=== PATIENT | female | born 1960 | race African-American/Black ===

== ENCOUNTER 2018-01-29 13:34 | Emergency (ER) | payer MEDICAID ==
[~2018-01-29] VITALS: Ht 180.3 cm; Wt 90.0 kg
[~2018-01-29 13:34] MED LIST: [UNRECOGNIZED DRUG - REMARK]
[2018-01-29 14:50] LABS: BASOPHILS % 0.1 % (0.0-2.0); HEMATOCRIT. 49.3 % (36.0-48.0); HEMOGLOBIN. 16.7 g/dL (12.0-16.0); LYMPHOCYTES % 7.8 % (20.0-50.0); MEAN CORPUSCULAR HEMOGLOBIN 34.1 pg (28.0-32.0); MEAN CORPUSCULAR VOLUME 100.9 fL (81.0-99.0); MEAN PLATELET VOLUME 7.7 fl (7.4-10.4); MONOCYTES % 2.8 % (2.0-8.0); NEUTROPHILS % 89.3 % (40.0-76.0); PLATELET 272 x1000/uL (130-400); RED BLOOD CELL COUNT 4.89 mill/uL (4.2-5.4); RED CELL DISTRIBUTION WIDTH 14.9 % (11.6-14.6)
[2018-01-29 14:56] LABS: CHLORIDE 99 mEq/L (98-107)
[2018-01-29] MEDS ORDERED: ONDANSETRON HCL 4MG/2ML VIAL IV ONE (17:30)
[2018-01-29] MEDS ORDERED: MORPHINE SULFATE 4 MG/ML CPJ (NOT FOR IM USE) IV STA (18:45)
[2018-01-29] MEDS ORDERED: SODIUM CHLORIDE 0.9% 1,000 ML IV ONE (18:45)
[2018-01-29] MEDS ORDERED: ONDANSETRON HCL 4MG/2ML VIAL IV STA (18:45)
[2018-01-29 19:19] LABS: CLARITY URINE TURBID (CLEAR); COLOR URINE DARK YELLOW (YELLOW); KETONES URINE 1+ (NEGATIVE); LEUKOCYTE ESTERASE URINE 1+ (NEGATIVE); NITRITE URINE NEGATIVE (NEGATIVE); OCCULT BLOOD URINE NEGATIVE (NEGATIVE); PROTEIN URINE 2+ (NEGATIVE); SPECIFIC GRAVITY URINE 1.031 (1.005-1.030)
[2018-01-29] MEDS ORDERED: CEFTRIAXONE 1 G PREMIX 50 ML IV ONE (21:45)
[2018-01-29 22:45] VITALS: BP 131/82
== END 2018-01-30 00:04 | disposition home or self-care (01) ==
LOC: ER 13:34
DX: N39.0 Urinary tract infection, site not specified (principal); R11.2 Nausea with vomiting, unspecified
CPT/HCPCS: 36415; 71045; 74176; 80053; 81003; 83690; 84484; 85025; 85610; 93005; 96361; 96365; 96375; 96376; 99285; J0696; J2270; J2405; J7030

== ENCOUNTER 2018-03-14 13:06 | Emergency (ER) | payer MEDICAID ==
[~2018-03-14] VITALS: Ht 167.6 cm; Wt 80.0 kg
[2018-03-14] MEDS ORDERED: MORPHINE SULFATE 4 MG/ML CPJ (NOT FOR IM USE) IV STA (13:21)
[2018-03-14] MEDS ORDERED: ONDANSETRON HCL 4MG/2ML INJ IV STA (13:21)
[2018-03-14] MEDS ORDERED: SODIUM CHLORIDE 0.9% 1,000 ML IV ONE (13:21)
[2018-03-14 14:25] LABS: BASOPHILS % 0.9 % (0.0-2.0); HEMATOCRIT. 42.6 % (36.0-48.0); HEMOGLOBIN. 14.6 g/dL (12.0-16.0); LYMPHOCYTES % 17.2 % (20.0-50.0); MEAN CORPUSCULAR HEMOGLOBIN 34.7 pg (28.0-32.0); MEAN CORPUSCULAR VOLUME 101.2 fL (81.0-99.0); MONOCYTES % 5.4 % (2.0-8.0); NEUTROPHILS % 75.5 % (40.0-76.0); PLATELET 788 x1000/uL (130-400); RED BLOOD CELL COUNT 4.21 mill/uL (4.2-5.4); RED CELL DISTRIBUTION WIDTH 15.1 % (11.6-14.6)
[2018-03-14 14:28] LABS: CHLORIDE 101 mEq/L (98-107); INR 1.1; PROTHROMBIN TIME 10.8 sec (9.1-11.1)
[2018-03-14 15:07] VITALS: BP 140/84
[2018-03-14 15:40] LABS: CLARITY URINE CLOUDY (CLEAR); COLOR URINE YELLOW (YELLOW); KETONES URINE TRACE (NEGATIVE); LEUKOCYTE ESTERASE URINE 2+ (NEGATIVE); NITRITE URINE POSITIVE (NEGATIVE); OCCULT BLOOD URINE NEGATIVE (NEGATIVE); PH URINE 8.5 (4.5-8.0); PROTEIN URINE 1+ (NEGATIVE); SPECIFIC GRAVITY URINE 1.017 (1.005-1.030); UROBILINOGEN URINE 0.2 E.U./dL (0.2-1.0)
== END 2018-03-14 15:09 | disposition home or self-care (01) ==
LOC: ER 13:23
DX: R10.30 Lower abdominal pain, unspecified (principal); R19.7 Diarrhea, unspecified; R11.2 Nausea with vomiting, unspecified; E11.9 Type 2 diabetes mellitus without complications; M19.90 Unspecified osteoarthritis, unspecified site; Z88.2 Allergy status to sulfonamides; Z79.899 Other long term (current) drug therapy
CPT/HCPCS: 36415; 74176; 80053; 81003; 82962; 83690; 85025; 85610; 87077; 87086; 87186; 96361; 96374; 96375; 99285; J2270; J2405; J7030

== ENCOUNTER 2018-06-19 10:48 | Inpatient (IN) | payer MEDICAID ==
[~2018-06-19] VITALS: Ht 180.3 cm; Wt 64.0 kg
[2018-06-19] MEDS ORDERED: SODIUM CHLORIDE 0.9% 1,000 ML IV ONE (11:33)
[2018-06-19] MEDS ORDERED: OXYCODONE HCL/ACETAMINOPHEN 5/325MG TABLET PO ONE (11:45)
[2018-06-19 12:19] LABS: BASOPHILS % 0.2 % (0.0-2.0); EOSINOPHILS % 0.6 % (0.0-5.0); HEMATOCRIT. 46.9 % (36.0-48.0); HEMOGLOBIN. 15.9 g/dL (12.0-16.0); LYMPHOCYTES % 11.6 % (20.0-50.0); MEAN CORPUSCULAR HEMOGLOBIN 31.3 pg (28.0-32.0); MEAN CORPUSCULAR VOLUME 92.4 fL (81.0-99.0); MEAN PLATELET VOLUME 8.1 fl (7.4-10.4); MONOCYTES % 9.8 % (2.0-8.0); NEUTROPHILS % 77.8 % (40.0-76.0); PLATELET 306 x1000/uL (130-400); RED BLOOD CELL COUNT 5.07 mill/uL (4.2-5.4); RED CELL DISTRIBUTION WIDTH 14.2 % (11.6-14.6)
[2018-06-19 12:20] LABS: CHLORIDE 85 mEq/L (98-107)
[2018-06-19] MEDS ORDERED: KCL 20MEQ/100ML PREMIX 100 ML IV ONE (12:45)
[2018-06-19] MEDS ORDERED: POTASSIUM CHLORIDE 20MEQ TABLET SR PO ONE (12:45)
[2018-06-19] MEDS ORDERED: HYDROCODONE/ACETAMINOPHEN 10/325MG TABLET PO PRN (17:00)
[2018-06-19] MEDS ORDERED: ACETAMINOPHEN 325MG TABLET PO PRN (17:00)
[2018-06-19] MEDS ORDERED: CLONIDINE 0.1MG TABLET PO PRN (17:00)
[2018-06-19] MEDS ORDERED: MAGNESIUM/ALUMINUM HYDROXIDE/SIMETHICONE 30ML UDC PO PRN (17:00)
[2018-06-19] MEDS ORDERED: ONDANSETRON HCL 4MG/2ML INJ IV PRN (17:00)
[2018-06-19 18:30] VITALS: BP 120/72
[2018-06-19] MEDS ORDERED: DEXTROSE 50% WATER 50ML SYRINGE IV PRN (19:15)
[2018-06-19 20:00] VITALS: BP 123/66
[2018-06-19] MEDS ORDERED: POTASSIUM CHLORIDE 20MEQ TABLET SR PO SCH (20:00)
[2018-06-19] MEDS ORDERED: QUET300T2 PO (20:10)
[2018-06-19] MEDS: BLOOD SUGAR DIAGNOSTIC STRIP TEST SCH (20:21)
[2018-06-19] MEDS: INSULIN LISPRO 100 UNITS/ML SUBCUT SCH (20:44)
[2018-06-19] MEDS: ENOXAPARIN 40MG/0.4ML SYR SUBCUT SCH (20:48)
[2018-06-19] MEDS: QUETIAPINE FUMARATE 100MG TABLET PO SCH (20:48)
[2018-06-19] MEDS: HYDROCODONE/ACETAMINOPHEN 5/325MG TABLET PO PRN (20:49)
[2018-06-19] MEDS: SODIUM CHLORIDE 0.9% INJ 3ML FLUSH IVF SCH (21:02)
[2018-06-20] VITALS: BP_SYST 119; BP_SYST 125; BP_DIAS 68; BP_DIAS 72
[2018-06-20 04:00] VITALS: BP 97/54
[2018-06-20] MEDS: SODIUM CHLORIDE 0.9% INJ 3ML FLUSH IVF SCH ×3 (06:06→21:24)
[2018-06-20 06:49] LABS: BASOPHILS % 0.3 % (0.0-2.0); EOSINOPHILS % 1.1 % (0.0-5.0); HEMATOCRIT. 38.2 % (36.0-48.0); LYMPHOCYTES % 19.9 % (20.0-50.0); MEAN CORPUSCULAR HEMOGLOBIN 31.7 pg (28.0-32.0); MEAN CORPUSCULAR VOLUME 92.9 fL (81.0-99.0); MEAN PLATELET VOLUME 8.4 fl (7.4-10.4); MONOCYTES % 10.6 % (2.0-8.0); NEUTROPHILS % 68.1 % (40.0-76.0); PLATELET 269 x1000/uL (130-400); RED BLOOD CELL COUNT 4.11 mill/uL (4.2-5.4); RED CELL DISTRIBUTION WIDTH 14.2 % (11.6-14.6)
[2018-06-20] MEDS: BLOOD SUGAR DIAGNOSTIC STRIP TEST SCH ×4 (06:52→21:24)
[2018-06-20 07:33] LABS: CHLORIDE 108 mEq/L (98-107)
[2018-06-20] MEDS: INSULIN LISPRO 100 UNITS/ML SUBCUT SCH ×4 (07:57→21:00)
[2018-06-20 08:00] VITALS: BP_SYST 104; BP_SYST 113; BP_DIAS 62
[2018-06-20] MEDS ORDERED: POTASSIUM CHLORIDE 20MEQ TABLET SR PO SCH ×2 (11:00→16:00)
[2018-06-20 11:59] VITALS: BP 111/70
[2018-06-20 16:00] VITALS: BP 109/35
[2018-06-20 20:00] VITALS: BP_SYST 108; BP_SYST 98; BP_DIAS 59; BP_DIAS 62
[2018-06-20] MEDS: QUETIAPINE FUMARATE 100MG TABLET PO SCH (21:17)
[2018-06-20] MEDS: ENOXAPARIN 40MG/0.4ML SYR SUBCUT SCH (21:18)
[2018-06-21 00:05] VITALS: BP 102/60
[2018-06-21 04:00] VITALS: BP 111/67
[2018-06-21] MEDS: SODIUM CHLORIDE 0.9% INJ 3ML FLUSH IVF SCH ×3 (05:31→21:47)
[2018-06-21] MEDS: BLOOD SUGAR DIAGNOSTIC STRIP TEST SCH ×4 (07:40→21:53)
[2018-06-21] MEDS: INSULIN LISPRO 100 UNITS/ML SUBCUT SCH ×3 (07:58→21:00)
[2018-06-21 08:00] VITALS: BP_SYST 111; BP_SYST 113; BP_SYST 126; BP_DIAS 71; BP_DIAS 72; BP_DIAS 75
[2018-06-21 12:00] VITALS: BP 111/73
[2018-06-21 20:00] VITALS: BP 112/75
[2018-06-21] MEDS: QUETIAPINE FUMARATE 100MG TABLET PO SCH (21:45)
[2018-06-21] MEDS: ENOXAPARIN 40MG/0.4ML SYR SUBCUT SCH (21:47)
[2018-06-22] VITALS: BP 92/55
[2018-06-22 04:00] VITALS: BP 98/59
[2018-06-22] MEDS: SODIUM CHLORIDE 0.9% INJ 3ML FLUSH IVF SCH ×3 (06:16→20:58)
[2018-06-22] MEDS: INSULIN LISPRO 100 UNITS/ML SUBCUT SCH ×2 (06:19→11:43)
[2018-06-22] MEDS: BLOOD SUGAR DIAGNOSTIC STRIP TEST SCH ×3 (06:19→16:32)
[2018-06-22 08:00] VITALS: BP 111/63
[2018-06-22 12:00] VITALS: BP 121/73
[2018-06-22 16:00] VITALS: BP 135/74
[2018-06-22 20:00] VITALS: BP 103/55
[2018-06-22] MEDS: QUETIAPINE FUMARATE 100MG TABLET PO SCH (20:39)
[2018-06-22] MEDS: HYDROCODONE/ACETAMINOPHEN 5/325MG TABLET PO PRN (20:40)
[2018-06-22] MEDS: ENOXAPARIN 40MG/0.4ML SYR SUBCUT SCH (20:40)
[2018-06-23] VITALS: BP 112/62
[2018-06-23 04:00] VITALS: BP 105/57
[2018-06-23] MEDS: SODIUM CHLORIDE 0.9% INJ 3ML FLUSH IVF SCH ×3 (05:07→22:23)
[2018-06-23 07:43] VITALS: BP 100/52
[2018-06-23 12:00] VITALS: BP 114/62
[2018-06-23 16:00] VITALS: BP 119/65
[2018-06-23] MEDS: ENOXAPARIN 40MG/0.4ML SYR SUBCUT SCH (20:05)
[2018-06-23] MEDS: QUETIAPINE FUMARATE 100MG TABLET PO SCH (20:05)
[2018-06-24] VITALS: BP 98/62
[2018-06-24 04:00] VITALS: BP 115/55
[2018-06-24] MEDS: SODIUM CHLORIDE 0.9% INJ 3ML FLUSH IVF SCH ×3 (06:41→22:19)
[2018-06-24 08:00] VITALS: BP 115/70
[2018-06-24 12:00] VITALS: BP 111/66
[2018-06-24 16:00] VITALS: BP 152/80
[2018-06-24 20:00] VITALS: BP 125/62
[2018-06-24] MEDS: QUETIAPINE FUMARATE 100MG TABLET PO SCH (20:43)
[2018-06-24] MEDS: ENOXAPARIN 40MG/0.4ML SYR SUBCUT SCH (20:43)
[2018-06-25] VITALS: BP 107/62
[2018-06-25 04:00] VITALS: BP 116/55
[2018-06-25] MEDS: SODIUM CHLORIDE 0.9% INJ 3ML FLUSH IVF SCH ×2 (05:27→14:45)
[2018-06-25 08:00] VITALS: BP 118/69
[2018-06-25 12:00] VITALS: BP 136/69
[2018-06-25 16:00] VITALS: BP 131/65
[2018-06-25 17:30] VITALS: BP 118/69
== END 2018-06-25 19:35 | DRG 342 ==
LOC: ER 10:48 → EDBEDREQ 12:41 → 7WST 13:35 → EDBEDREQ 13:37 → ENRESERV 15:16 → 7WST 06-20 11:18 → 8WST 06-21 18:03
PROVIDERS: ADMIT Internal Medicine; ATTEND Internal Medicine
DX: S82.832A Other fracture of upper and lower end of left fibula, initial encounter for closed fracture (principal); G90.8 Other disorders of autonomic nervous system; E11.9 Type 2 diabetes mellitus without complications; E87.6 Hypokalemia; F99 Mental disorder, not otherwise specified; M19.90 Unspecified osteoarthritis, unspecified site; R29.6 Repeated falls; W19.XXXA Unspecified fall, initial encounter; I10 Essential (primary) hypertension; Z83.3 Family history of diabetes mellitus; Z91.81 History of falling; Z87.11 Personal history of peptic ulcer disease; Z88.2 Allergy status to sulfonamides; Y93.89 Activity, other specified; Y92.89 Other specified places as the place of occurrence of the external cause; Y99.8 Other external cause status; R63.6 Underweight; Z68.1 Body mass index [BMI] 19.9 or less, adult
CPT/HCPCS: 36415; 71045; 73590; 73600; 73620; 80048; 80051; 82962; 83036; 83735; 84100; 84484; 93005; 93306; 96361; 96365; 97116; 97162; 97530; 99285; C1893; J1650; J1815; J3480; J7030; J7040

== ENCOUNTER 2019-01-04 21:04 | Emergency (ER) | payer MEDICAID ==
[~2019-01-04] VITALS: Ht 170.2 cm; Wt 69.0 kg
[~2019-01-04 21:04] MED LIST changes: +PANT40TA4 MT; +QUET300T2 PO; +QUET400T MT; +SERT20OR PO; +TRAZ-251 PO; -[UNRECOGNIZED DRUG - REMARK]
[2019-01-04] MEDS ORDERED: SODIUM CHLORIDE 0.9% 1,000 ML IV ONE (21:39)
[2019-01-04] MEDS ORDERED: ONDANSETRON HCL 4MG/2ML INJ IV STA (21:39)
[2019-01-04] MEDS ORDERED: KETOROLAC 30MG/ML VIAL IV STA (21:39)
[2019-01-04 22:03] LABS: BASOPHILS % 0.4 % (0.0-2.0); EOSINOPHILS % 0.1 % (0.0-5.0); HEMATOCRIT. 45.4 % (36.0-48.0); HEMOGLOBIN. 15.6 g/dL (12.0-16.0); LYMPHOCYTES % 8.2 % (20.0-50.0); MEAN CORPUSCULAR HEMOGLOBIN 32.9 pg (28.0-32.0); MEAN CORPUSCULAR VOLUME 95.9 fL (81.0-99.0); MEAN PLATELET VOLUME 7.9 fl (7.4-10.4); MONOCYTES % 6.6 % (2.0-8.0); NEUTROPHILS % 84.7 % (40.0-76.0); PLATELET 257 x1000/uL (130-400); RED BLOOD CELL COUNT 4.74 mill/uL (4.2-5.4)
[2019-01-04 22:06] LABS: CHLORIDE 98 mEq/L (98-107)
[2019-01-04 22:07] LABS: INR 1.1; PROTHROMBIN TIME 10.9 sec (9.6-11.0)
[2019-01-04 22:16] LABS: CLARITY URINE CLOUDY (CLEAR); COLOR URINE DARK YELLOW (YELLOW); KETONES URINE 1+ (NEGATIVE); LEUKOCYTE ESTERASE URINE 1+ (NEGATIVE); NITRITE URINE NEGATIVE (NEGATIVE); OCCULT BLOOD URINE NEGATIVE (NEGATIVE); PH URINE 6.5 (4.5-8.0); PROTEIN URINE 2+ (NEGATIVE); SPECIFIC GRAVITY URINE 1.028 (1.005-1.030)
[2019-01-04] MEDS ORDERED: CEFTRIAXONE 1 G PREMIX 50 ML IV ONE (22:45)
[2019-01-04] MEDS ORDERED: POTASSIUM CHLORIDE 20MEQ TABLET SR PO ONE (22:45)
[2019-01-05] MEDS ORDERED: ONDANSETRON 4MG ODT PO ONE
[2019-01-05] MEDS ORDERED: POTASSIUM CHLORIDE 20MEQ TABLET SR PO ONE
[2019-01-05] MEDS ORDERED: MAGNESIUM/ALUMINUM HYDROXIDE/SIMETHICONE 30ML UDC PO ONE (00:30)
[2019-01-05 00:35] VITALS: BP 120/80
== END 2019-01-05 00:41 | disposition home or self-care (01) ==
LOC: ER 21:04
DX: R10.33 Periumbilical pain (principal); N30.00 Acute cystitis without hematuria; E87.5 Hyperkalemia; I10 Essential (primary) hypertension; E11.9 Type 2 diabetes mellitus without complications; M19.90 Unspecified osteoarthritis, unspecified site; Z88.2 Allergy status to sulfonamides; Z87.11 Personal history of peptic ulcer disease
CPT/HCPCS: 36415; 74176; 80053; 81003; 83690; 85025; 85610; 96361; 96365; 96375; 99284; J0696; J1885; J2405; J7030; Q0162; Z7610

== ENCOUNTER 2019-12-02 11:19 | Inpatient (IN) | payer MEDICAID ==
[~2019-12-02] VITALS: Ht 177.8 cm; Wt 69.4 kg
[2019-12-02] MEDS ORDERED: LORAZEPAM 2MG/ML CPJ IV ONE (11:30)
[2019-12-02] MEDS ORDERED: SODIUM CHLORIDE 0.9% 1,000 ML IV ONE (11:30)
[2019-12-02] MEDS ORDERED: ONDANSETRON HCL 4MG/2ML INJ IV ONE (11:30)
[2019-12-02 12:04] LABS: BASOPHILS % 0.6 % (0.0-2.0); HEMATOCRIT. 49.1 % (36.0-48.0); HEMOGLOBIN. 17.2 g/dL (12.0-16.0); MEAN CORPUSCULAR HEMOGLOBIN 34.1 pg (28.0-32.0); MEAN CORPUSCULAR VOLUME 97.4 fL (81.0-99.0); MEAN PLATELET VOLUME 8.1 fl (7.4-10.4); MONOCYTES % 8.1 % (2.0-8.0); NEUTROPHILS % 60.3 % (40.0-76.0); PLATELET 338 x1000/uL (130-400); RED BLOOD CELL COUNT 5.05 mill/uL (4.2-5.4); RED CELL DISTRIBUTION WIDTH 15.7 % (11.6-14.6)
[2019-12-02 12:11] LABS: CHLORIDE 88 mEq/L (98-107)
[2019-12-02 12:15] LABS: CLARITY URINE CLOUDY (CLEAR); COLOR URINE DARK YELLOW (YELLOW); ETHANOL BLOOD < 10 mg/dL; KETONES URINE TRACE (NEGATIVE); LEUKOCYTE ESTERASE URINE TRACE (NEGATIVE); NITRITE URINE NEGATIVE (NEGATIVE); OCCULT BLOOD URINE NEGATIVE (NEGATIVE); PROTEIN URINE TRACE (NEGATIVE); SPECIFIC GRAVITY URINE 1.022 (1.005-1.030)
[2019-12-02 12:21] LABS: D-DIMER 0.23 mg/L FEU (<0.50); PARTIAL THROMBOPLASTIN TIME 25.6 sec (23.4-31.0); PROTHROMBIN TIME 10.9 sec (9.6-11.0)
[2019-12-02 12:30] LABS: *AMPHETAMINES SCREEN URINE NEGATIVE (NEGATIVE); *BARBITURATES SCREEN URINE NEGATIVE (NEGATIVE); *BENZODIAZEPINES SCREEN URINE NEGATIVE (NEGATIVE); *COCAINE SCREEN URINE NEGATIVE (NEGATIVE)
[2019-12-02] MEDS ORDERED: KCL 20MEQ/100ML PREMIX 100 ML IV ONE (12:30)
[2019-12-02] MEDS ORDERED: MAGNESIUM 1 G PREMIX 100 ML IV ONE (12:30)
[2019-12-02 12:31] LABS: CANNABINOID URINE SCREEN PRESUMTIVE POSITIVE (NEGATIVE); METHADONE URINE SCREEN NEGATIVE (NEGATIVE); OPIATES URINE SCREEN NEGATIVE (NEGATIVE); PHENCYCLIDINE URINE SCREEN NEGATIVE (NEGATIVE)
[2019-12-02] MEDS ORDERED: CEFTRIAXONE 1 G PREMIX 50 ML IV ONE (12:45)
[2019-12-02] MEDS ORDERED: ASPIRIN 81MG TABLET PO ONE (12:45)
[2019-12-02] MEDS ORDERED: POTASSIUM CHLORIDE 20MEQ TABLET SR PO ONE (15:00)
[2019-12-02] MEDS ORDERED: LORAZEPAM 2MG/ML CPJ IV PRN (15:45)
[2019-12-02] MEDS ORDERED: ACETAMINOPHEN 325MG TABLET PO PRN (15:45)
[2019-12-02] MEDS ORDERED: IPRATROPIUM/ALBUTEROL 0.5-3(2.5)MG/3ML NEB HHN PRN (15:45)
[2019-12-02] MEDS ORDERED: ONDANSETRON HCL 4MG/2ML INJ IV PRN (15:45)
[2019-12-02 16:37] LABS: PHOSPHORUS 0.6 mg/dL (2.5-4.9)
[2019-12-02] MEDS: ENOXAPARIN 40MG/0.4ML SYR SUBCUT SCH (17:13)
[2019-12-02] MEDS ORDERED: POTASSIUM CHLORIDE 20MEQ TABLET SR PO NR (18:00)
[2019-12-02] MEDS ORDERED: POTASSIUM PHOS,M-BASIC-D-BASIC 30 MMOL in DEXT 5% WATER 500 ML IV SCH (21:00)
[2019-12-02 23:00] VITALS: BP 112/73
[2019-12-03] VITALS: BP 113/77
[2019-12-03] MEDS ORDERED: HYDROCODONE/ACETAMINOPHEN 5/325MG TABLET PO PRN (01:45)
[2019-12-03] MEDS: POTASSIUM CHLORIDE 20MEQ TABLET SR PO SCH ×3 (02:08→09:56)
[2019-12-03 04:26] VITALS: BP 115/60
[2019-12-03 07:08] LABS: BASOPHILS % 0.5 % (0.0-2.0); EOSINOPHILS % 1.8 % (0.0-5.0); HEMATOCRIT. 42.1 % (36.0-48.0); HEMOGLOBIN. 14.5 g/dL (12.0-16.0); LYMPHOCYTES % 28.9 % (20.0-50.0); MEAN CORPUSCULAR HEMOGLOBIN 33.6 pg (28.0-32.0); MEAN CORPUSCULAR VOLUME 97.7 fL (81.0-99.0); MEAN PLATELET VOLUME 7.9 fl (7.4-10.4); MONOCYTES % 8.8 % (2.0-8.0); PLATELET 271 x1000/uL (130-400); RED BLOOD CELL COUNT 4.31 mill/uL (4.2-5.4); RED CELL DISTRIBUTION WIDTH 15.6 % (11.6-14.6)
[2019-12-03 07:21] LABS: CHLORIDE 98 mEq/L (98-107)
[2019-12-03 07:27] LABS: PHOSPHORUS 3.5 mg/dL (2.5-4.9)
[2019-12-03 08:00] VITALS: BP 102/51
[2019-12-03 12:00] VITALS: BP 107/64
[2019-12-03] MEDS: ENOXAPARIN 40MG/0.4ML SYR SUBCUT SCH (15:22)
[2019-12-03 16:00] VITALS: BP 141/60
[2019-12-03 20:00] VITALS: BP 126/74
[2019-12-03] MEDS ORDERED: QUETIAPINE FUMARATE 50MG TABLET PO SCH (21:00)
[2019-12-04] VITALS: BP_SYST 102; BP_SYST 122; BP_DIAS 72; BP_DIAS 78
[2019-12-04 05:30] VITALS: BP 115/77
[2019-12-04 07:36] LABS: CHLORIDE 104 mEq/L (98-107)
[2019-12-04 08:00] VITALS: BP 100/49
[2019-12-04] MEDS ORDERED: POTASSIUM CHLORIDE 20MEQ TABLET SR PO SCH (09:00)
[2019-12-04 12:00] VITALS: BP 113/71
[2019-12-04] MEDS ORDERED: FAMOTIDINE 20MG TABLET PO SCH (15:30)
[2019-12-04] MEDS: ENOXAPARIN 40MG/0.4ML SYR SUBCUT SCH ×2 (15:30→15:38)
[2019-12-04 16:00] VITALS: BP 110/50
[2019-12-04] MEDS ORDERED: QUET200T MT (17:40)
[2019-12-04 17:53] VITALS: BP 110/50
[2019-12-04] MEDS ORDERED: QUETIAPINE FUMARATE 50MG TABLET PO SCH (17:54)
== END 2019-12-04 19:45 | disposition home or self-care (01) | DRG 756 ==
LOC: ER 11:19 → 5WST 12:40 → ENRESERV 20:13
PROVIDERS: ADMIT Internal Medicine; ATTEND Internal Medicine
DX: F41.9 Anxiety disorder, unspecified (principal); E87.8 Other disorders of electrolyte and fluid balance, not elsewhere classified; E83.39 Other disorders of phosphorus metabolism; E83.42 Hypomagnesemia; E87.1 Hypo-osmolality and hyponatremia; J44.9 Chronic obstructive pulmonary disease, unspecified; K27.9 Peptic ulcer, site unspecified, unspecified as acute or chronic, without hemorrhage or perforation; E87.6 Hypokalemia; E11.9 Type 2 diabetes mellitus without complications; F10.10 Alcohol abuse, uncomplicated; I10 Essential (primary) hypertension; I25.10 Atherosclerotic heart disease of native coronary artery without angina pectoris; M19.90 Unspecified osteoarthritis, unspecified site; F17.210 Nicotine dependence, cigarettes, uncomplicated; R19.7 Diarrhea, unspecified; Y90.9 Presence of alcohol in blood, level not specified; Z88.2 Allergy status to sulfonamides; Z79.899 Other long term (current) drug therapy; Z71.41 Alcohol abuse counseling and surveillance of alcoholic; Z87.11 Personal history of peptic ulcer disease
CPT/HCPCS: 36415; 71045; 80048; 80053; 80305; 80320; 81003; 82962; 83735; 83880; 84100; 84132; 84484; 85025; 85379; 93005; 97162; 99285; J0696; J1650; J2060; J2405; J3475; J3480; J3490; J7030; J7060; G0480

== ENCOUNTER 2020-03-25 12:49 | Emergency (ER) | payer MEDICAID ==
[~2020-03-25] VITALS: Ht 170.2 cm; Wt 68.0 kg
[~2020-03-25 12:49] MED LIST changes: -PANT40TA4 MT; +QUET200T MT; -QUET300T2 PO; -QUET400T MT; -SERT20OR PO; -TRAZ-251 PO
[2020-03-25] MEDS ORDERED: MORPHINE SULFATE 4 MG/ML CPJ (NOT FOR IM USE) IV ONE ×3 (13:00→15:45)
[2020-03-25] MEDS ORDERED: LACTATED RINGERS 1,000 ML IV STA (13:04)
[2020-03-25] MEDS ORDERED: HALOPERIDOL LACTATE 5MG/ML VIAL IM ONE (13:15)
[2020-03-25 13:38] LABS: BASOPHILS % 0.8 % (0.0-2.0); EOSINOPHILS % 0.5 % (0.0-5.0); HEMATOCRIT. 46.7 % (36.0-48.0); HEMOGLOBIN. 16.1 g/dL (12.0-16.0); MEAN CORPUSCULAR VOLUME 98.6 fL (81.0-99.0); MEAN PLATELET VOLUME 8.2 fl (7.4-10.4); MONOCYTES % 6.1 % (2.0-8.0); NEUTROPHILS % 78.6 % (40.0-76.0); PLATELET 260 x1000/uL (130-400); RED BLOOD CELL COUNT 4.73 mill/uL (4.2-5.4); RED CELL DISTRIBUTION WIDTH 14.3 % (11.6-14.6)
[2020-03-25 13:44] LABS: CLARITY URINE CLOUDY (CLEAR); COLOR URINE DARK YELLOW (YELLOW); KETONES URINE NEGATIVE (NEGATIVE); LEUKOCYTE ESTERASE URINE 1+ (NEGATIVE); NITRITE URINE NEGATIVE (NEGATIVE); OCCULT BLOOD URINE NEGATIVE (NEGATIVE); PH URINE 5.5 (4.5-8.0); PROTEIN URINE 2+ (NEGATIVE); SPECIFIC GRAVITY URINE 1.026 (1.005-1.030)
[2020-03-25 13:49] LABS: CHLORIDE 99 mEq/L (98-107)
[2020-03-25 13:55] LABS: PHOSPHORUS 1.5 mg/dL (2.5-4.9)
[2020-03-25 13:56] LABS: *AMPHETAMINES SCREEN URINE NEGATIVE (NEGATIVE); *BARBITURATES SCREEN URINE NEGATIVE (NEGATIVE); *COCAINE SCREEN URINE NEGATIVE (NEGATIVE); METHADONE URINE SCREEN NEGATIVE (NEGATIVE)
[2020-03-25 13:57] LABS: CANNABINOID URINE SCREEN PRESUMTIVE POSITIVE (NEGATIVE); OPIATES URINE SCREEN NEGATIVE (NEGATIVE); PHENCYCLIDINE URINE SCREEN NEGATIVE (NEGATIVE)
[2020-03-25 13:59] LABS: *BENZODIAZEPINES SCREEN URINE NEGATIVE (NEGATIVE)
[2020-03-25] MEDS ORDERED: ONDANSETRON HCL 4MG/2ML INJ IV ONE (15:00)
[2020-03-25 15:33] LABS: PROTHROMBIN TIME 10.9 sec (9.6-11.0)
[2020-03-25] MEDS ORDERED: CAPSAICIN 0.075% CREAM 60GM TOP PRN (15:45)
[2020-03-25 16:00] VITALS: BP 138/68
[2020-03-25] MEDS ORDERED: METOCLOPRAMIDE HCL 10MG/2ML VIAL IV ONE (17:15)
== END 2020-03-25 17:36 | disposition home or self-care (01) ==
LOC: ER 13:49
DX: R11.2 Nausea with vomiting, unspecified (principal); E11.9 Type 2 diabetes mellitus without complications; I10 Essential (primary) hypertension; Z88.2 Allergy status to sulfonamides
CPT/HCPCS: 36415; 80053; 80305; 81003; 83690; 83735; 84100; 84484; 85025; 85610; 93005; 96361; 96372; 96374; 96375; 96376; 99284; J1630; J2270; J2405; J2765; J7120

== ENCOUNTER 2021-02-28 19:24 | Emergency (ER) | payer MEDICAID ==
[~2021-02-28] VITALS: Ht 172.7 cm; Wt 68.0 kg
[2021-02-28] MEDS ORDERED: MORPHINE SULFATE 4 MG/ML CPJ (NOT FOR IM USE) IV ONE (20:45)
[2021-02-28 21:16] LABS: BASOPHILS % 0.5 % (0.0-2.0); HEMATOCRIT. 42.6 % (36.0-48.0); HEMOGLOBIN. 14.7 g/dL (12.0-16.0); LYMPHOCYTES % 8.8 % (20.0-50.0); MEAN CORPUSCULAR HEMOGLOBIN 33.6 pg (28.0-32.0); MEAN CORPUSCULAR VOLUME 97.5 fL (81.0-99.0); MEAN PLATELET VOLUME 7.5 fl (7.4-10.4); MONOCYTES % 3.4 % (2.0-8.0); NEUTROPHILS % 87.3 % (40.0-76.0); PLATELET 305 x1000/uL (130-400); RED BLOOD CELL COUNT 4.37 mill/uL (4.2-5.4); RED CELL DISTRIBUTION WIDTH 13.2 % (11.6-14.6)
[2021-02-28 21:22] LABS: CHLORIDE 105 mEq/L (98-107)
[2021-02-28 21:25] LABS: INR 1.1; PROTHROMBIN TIME 11.4 sec (9.6-11.0)
[2021-02-28] MEDS ORDERED: ONDANSETRON HCL 4MG/2ML INJ IV ONE (23:30)
[2021-02-28 23:39] LABS: CLARITY URINE CLOUDY (CLEAR); COLOR URINE YELLOW (YELLOW); KETONES URINE 1+ (NEGATIVE); LEUKOCYTE ESTERASE URINE 1+ (NEGATIVE); NITRITE URINE NEGATIVE (NEGATIVE); OCCULT BLOOD URINE NEGATIVE (NEGATIVE); PH URINE 5.5 (4.5-8.0); PROTEIN URINE 2+ (NEGATIVE); SPECIFIC GRAVITY URINE 1.019 (1.005-1.030)
[2021-03-01] MEDS ORDERED: ONDA4TAB5 MT (00:14)
[2021-03-01 00:45] VITALS: BP 133/76
== END 2021-03-01 00:45 | disposition home or self-care (01) ==
LOC: ER 19:24
DX: N30.90 Cystitis, unspecified without hematuria (principal); J45.909 Unspecified asthma, uncomplicated; E11.9 Type 2 diabetes mellitus without complications; I10 Essential (primary) hypertension; F14.10 Cocaine abuse, uncomplicated
CPT/HCPCS: 36415; 71045; 74177; 80053; 81003; 81025; 83690; 84484; 85025; 85610; 87077; 87086; 87186; 93005; 96374; 96375; 99285; J2270; J2405

== ENCOUNTER 2022-12-05 16:50 | Emergency (ER) | payer MEDICAID ==
[~2022-12-05] VITALS: Ht 167.6 cm; Wt 80.0 kg
[~2022-12-05 16:50] MED LIST changes: +METO25TA6 NG; +OLAN5TAB74 PO; +ONDA4TAB5 MT; +POTA-204 PO; -QUET200T MT; +QUET50TA PO; +SERT50TA PO
[2022-12-05 16:57] VITALS: BP 172/102; PULSE 146; RESP 16; TEMP 98.2; O2SAT 96
[2022-12-05 17:31] LABS: BASOPHILS % 0.4 % (0.0-2.0); EOSINOPHILS % 0.8 % (0.0-5.0); HEMATOCRIT. 38.1 % (36.0-48.0); HEMOGLOBIN. 12.9 g/dL (12.0-16.0); LYMPHOCYTES % 30.3 % (20.0-50.0); MEAN CORPUSCULAR HEMOGLOBIN 31.7 pg (28.0-32.0); MEAN CORPUSCULAR VOLUME 93.8 fL (81.0-99.0); MEAN PLATELET VOLUME 8.6 fl (7.4-10.4); MONOCYTES % 5.8 % (2.0-8.0); NEUTROPHILS % 62.7 % (40.0-76.0); PLATELET 258 x1000/uL (130-400); RED BLOOD CELL COUNT 4.06 mill/uL (4.2-5.4)
[2022-12-05 17:36] LABS: CHLORIDE 109 mEq/L (98-107)
== END 2022-12-05 18:58 | disposition left against medical advice (07) ==
LOC: ER 16:50
DX: R06.02 Shortness of breath (principal); F10.229 Alcohol dependence with intoxication, unspecified; J45.909 Unspecified asthma, uncomplicated; E11.9 Type 2 diabetes mellitus without complications; I10 Essential (primary) hypertension; F20.9 Schizophrenia, unspecified; F12.10 Cannabis abuse, uncomplicated; Z79.899 Other long term (current) drug therapy; Y90.0 Blood alcohol level of less than 20 mg/100 ml
CPT/HCPCS: 36415; 71045; 80053; 83880; 84484; 85025; 85379; 93005; 99285

== ENCOUNTER 2023-02-03 00:24 | Emergency (ER) | payer MEDICAID ==
[~2023-02-03] VITALS: Ht 170.2 cm; Wt 70.0 kg
[2023-02-03 00:26] VITALS: O2SAT 100
[2023-02-03] MEDS ORDERED: HALOPERIDOL LACTATE 5MG/ML VIAL IM ONE (01:00)
[2023-02-03] MEDS ORDERED: SODIUM CHLORIDE 0.9% 1,000 ML IV ONE (01:00)
[2023-02-03 01:27] LABS: BASOPHILS % 0.2 % (0.0-2.0); EOSINOPHILS % 0.2 % (0.0-5.0); HEMATOCRIT. 44.7 % (36.0-48.0); HEMOGLOBIN. 14.8 g/dL (12.0-16.0); MEAN CORPUSCULAR HEMOGLOBIN 29.7 pg (28.0-32.0); MEAN CORPUSCULAR HGB CONC 33.2 g/dL (31.0-37.0); MEAN CORPUSCULAR VOLUME 89.4 fL (81.0-99.0); MONOCYTES % 3.1 % (2.0-8.0); NEUTROPHILS % 83.5 % (40.0-76.0); PLATELET 248 x1000/uL (130-400); RED CELL DISTRIBUTION WIDTH 13.8 % (11.6-14.6); WHITE BLOOD COUNT 13.7 x1000/uL (4.5-11.0)
[2023-02-03 01:32] LABS: CHLORIDE 101 mEq/L (98-107); INDEX HEMOLYSI 1 (1-3); INDEX ICTERIC 1 (1-4); INDEX LIPEMIC 1 (1-3); POTASSIUM 3.6 mEq/L (3.5-5.1); SODIUM 136 mEq/L (136-145)
[2023-02-03 01:41] LABS: ALANINE AMINOTRANSFERASE 15 IU/L (13-61); ALBUMIN 3.9 g/dL (3.4-5.0); ASPARTATE AMINOTRANSFERASE 18 IU/L (15-37); BILIRUBIN TOTAL 0.4 mg/dL (0.1-1.0); CARBON DIOXIDE 25 mEq/L (21-32); CREATININE 0.7 mg/dL (0.6-1.3); ETHANOL BLOOD < 10 mg/dL (-10); GLUCOSE 169 mg/dL (70-105); PROTEIN TOTAL 8.8 g/dL (6.0-8.3); UREA NITROGEN BLOOD 10 mg/dL (7-21)
[2023-02-03 05:29] LABS: *AMPHETAMINES SCREEN URINE NEGATIVE (NEGATIVE); *BARBITURATES SCREEN URINE NEGATIVE (NEGATIVE); *BENZODIAZEPINES SCREEN URINE NEGATIVE (NEGATIVE); *COCAINE SCREEN URINE NEGATIVE (NEGATIVE); CANNABINOID URINE SCREEN PRESUMTIVE POSITIVE (NEGATIVE); ECSTASY MDMA SCREEN URINE NEGATIVE (NEGATIVE); METHADONE URINE SCREEN NEGATIVE (NEGATIVE); OPIATES URINE SCREEN NEGATIVE (NEGATIVE); PHENCYCLIDINE URINE SCREEN NEGATIVE (NEGATIVE)
[2023-02-03 05:30] VITALS: BP 128/92; PULSE 75; RESP 16; TEMP 98.3
== END 2023-02-03 05:36 | disposition home or self-care (01) ==
LOC: ER 00:24
DX: R10.9 Unspecified abdominal pain (principal); F12.10 Cannabis abuse, uncomplicated; E11.9 Type 2 diabetes mellitus without complications; I10 Essential (primary) hypertension; Z88.2 Allergy status to sulfonamides; Z88.0 Allergy status to penicillin; Z86.59 Personal history of other mental and behavioral disorders; Z98.890 Other specified postprocedural states
CPT/HCPCS: 80053; 80305; 80320; 83605; 83690; 85025; 36415; 93005; 96360; 96372; 99284; J1630; J7030; G0480

== ENCOUNTER 2023-05-20 10:12 | Emergency (ER) | payer MEDICAID ==
[~2023-05-20] VITALS: Ht 172.7 cm; Wt 94.0 kg
[2023-05-20 10:14] VITALS: O2SAT 100
[2023-05-20] MEDS ORDERED: PANT40TA51 MT (12:15)
[2023-05-20 12:23] VITALS: BP 168/87; PULSE 71; RESP 16; TEMP 98.1
== END 2023-05-20 12:35 | disposition home or self-care (01) ==
LOC: ER 10:12
DX: R10.9 Unspecified abdominal pain (principal); F12.10 Cannabis abuse, uncomplicated; E11.9 Type 2 diabetes mellitus without complications; I10 Essential (primary) hypertension; J45.909 Unspecified asthma, uncomplicated; Z88.2 Allergy status to sulfonamides; Z88.0 Allergy status to penicillin; Z79.899 Other long term (current) drug therapy; Z86.59 Personal history of other mental and behavioral disorders; Z98.890 Other specified postprocedural states
CPT/HCPCS: 99283

== ENCOUNTER 2023-05-20 16:50 | Emergency (ER) | payer MEDICAID ==
[~2023-05-20 16:50] MED LIST changes: +PANT40TA51 MT
[2023-05-20 16:52] VITALS: PULSE 89
== END 2023-05-20 17:09 | disposition left against medical advice (07) ==
LOC: ER 16:50
DX: Z03.6 Encounter for observation for suspected toxic effect from ingested substance ruled out (principal); Z53.21 Procedure and treatment not carried out due to patient leaving prior to being seen by health care provider
CPT/HCPCS: 99281

== ENCOUNTER 2024-04-05 09:45 | Emergency (ER) | payer MEDICAID, MEDICARE ==
[~2024-04-05] VITALS: Ht 180.3 cm; Wt 73.0 kg
[2024-04-05 09:51] VITALS: O2SAT 98
[2024-04-05 10:37] LABS: BASOPHILS % 0.3 % (0.0-2.0); EOSINOPHILS % 0.5 % (0.0-5.0); HEMATOCRIT. 44.4 % (36.0-48.0); HEMOGLOBIN. 14.3 g/dL (12.0-16.0); LYMPHOCYTES % 24.6 % (20.0-50.0); MEAN CORPUSCULAR HEMOGLOBIN 29.8 pg (28.0-32.0); MEAN CORPUSCULAR HGB CONC 32.3 g/dL (31.0-37.0); MEAN CORPUSCULAR VOLUME 92.2 fL (81.0-99.0); MEAN PLATELET VOLUME 8.4 fl (7.4-10.4); MONOCYTES % 7.8 % (2.0-8.0); NEUTROPHILS % 66.8 % (40.0-76.0); PLATELET 201 x1000/uL (130-400); RED BLOOD CELL COUNT 4.82 mill/uL (4.2-5.4); RED CELL DISTRIBUTION WIDTH 15.7 % (11.6-14.6); WHITE BLOOD COUNT 7.8 x1000/uL (4.5-11.0)
[2024-04-05 10:44] LABS: CHLORIDE 108 mEq/L (98-107); POTASSIUM 3.3 mEq/L (3.5-5.1); SODIUM 139 mEq/L (136-145)
[2024-04-05 10:45] LABS: CARBON DIOXIDE 30 mEq/L (21-32)
[2024-04-05 10:46] LABS: CALCIUM 11.2 mg/dL (8.7-10.4)
[2024-04-05 10:49] LABS: DIFFERENTIAL COMMENT 1
[2024-04-05 10:50] LABS: CREATININE 0.8 mg/dL (0.6-1.0)
[2024-04-05 10:51] LABS: GLUCOSE 103 mg/dL (70-105); UREA NITROGEN BLOOD 10 mg/dL (9-23)
[2024-04-05] MEDS: AMLODIPINE 5MG TABLET PO STA (11:43)
[2024-04-05 11:45] VITALS: BP 206/109; PULSE 77; RESP 18; TEMP 36.61404; O2SAT 98
== END 2024-04-05 11:55 | disposition home or self-care (01) ==
LOC: ER 09:45
DX: B07.0 Plantar wart (principal); I10 Essential (primary) hypertension; Z88.0 Allergy status to penicillin; Z88.2 Allergy status to sulfonamides; Z79.899 Other long term (current) drug therapy
CPT/HCPCS: 36415; 73630; 80048; 85025; 99284

== ENCOUNTER 2024-06-09 23:04 | Emergency (ER) | payer MEDICARE, MEDICAID ==
[~2024-06-09] VITALS: Ht 170.2 cm; Wt 61.0 kg
[~2024-06-09 23:04] MED LIST changes: +LOSA50TA41 PO
[2024-06-09 23:13] VITALS: O2SAT 99
[2024-06-09 23:33] LABS: BASOPHILS % 0.5 % (0.0-2.0); EOSINOPHILS % 1.1 % (0.0-5.0); HEMATOCRIT. 45.2 % (36.0-48.0); HEMOGLOBIN. 15.2 g/dL (12.0-16.0); LYMPHOCYTES % 30.3 % (20.0-50.0); MEAN CORPUSCULAR HEMOGLOBIN 30.7 pg (28.0-32.0); MEAN CORPUSCULAR HGB CONC 33.6 g/dL (31.0-37.0); MEAN CORPUSCULAR VOLUME 91.4 fL (81.0-99.0); MEAN PLATELET VOLUME 9.6 fl (7.4-10.4); MONOCYTES % 6.6 % (2.0-8.0); NEUTROPHILS % 61.5 % (40.0-76.0); PLATELET 181 x1000/uL (130-400); RED BLOOD CELL COUNT 4.95 mill/uL (4.2-5.4); RED CELL DISTRIBUTION WIDTH 15.8 % (11.6-14.6); WHITE BLOOD COUNT 9.9 x1000/uL (4.5-11.0)
[2024-06-09 23:36] LABS: CARBON DIOXIDE 30 mEq/L (21-32); CHLORIDE 108 mEq/L (98-107); SODIUM 143 mEq/L (136-145)
[2024-06-09 23:37] LABS: CALCIUM 11.6 mg/dL (8.7-10.4)
[2024-06-09 23:41] LABS: CREATININE 0.9 mg/dL (0.6-1.0)
[2024-06-09 23:42] LABS: GLUCOSE 131 mg/dL (70-105); UREA NITROGEN BLOOD 6 mg/dL (9-23)
[2024-06-09 23:43] LABS: ACETAMINOPHEN < 2 ug/mL (10-30); ALANINE AMINOTRANSFERASE 11 IU/L (10-49); ALBUMIN 4.4 g/dL (3.2-4.8); ASPARTATE AMINOTRANSFERASE 26 IU/L (<34)
[2024-06-09 23:44] LABS: BILIRUBIN DIRECT 0.2 mg/dL (<=3.0); BILIRUBIN TOTAL 0.6 mg/dL (0.1-1.0); PROTEIN TOTAL 7.8 g/dL (6.0-8.3)
[2024-06-09 23:46] LABS: ETHANOL BLOOD < 10 mg/dL (<10)
[2024-06-09 23:49] LABS: POTASSIUM 2.8 mEq/L (3.5-5.1)
[2024-06-10] MEDS: PANTOPRAZOLE 40MG DR TABLET PO NR (02:29)
[2024-06-10] MEDS: POTASSIUM CHLORIDE 20MEQ/PACKET PO ONE (02:29)
[2024-06-10] MEDS: TRAZODONE HCL 50MG TABLET PO NR (02:35)
[2024-06-10 02:52] VITALS: BP 156/83; PULSE 68; RESP 18; TEMP 36.55848; O2SAT 100
[2024-06-10 06:35] LABS: CLARITY URINE CLEAR (CLEAR); COLOR URINE YELLOW (YELLOW); GLUCOSE URINE NEGATIVE (NEGATIVE); KETONES URINE NEGATIVE (NEGATIVE); LEUKOCYTE ESTERASE URINE NEGATIVE (NEGATIVE); NITRITE URINE NEGATIVE (NEGATIVE); OCCULT BLOOD URINE TRACE (NEGATIVE); PH URINE 8.5 (4.5-8.0); PROTEIN URINE NEGATIVE (NEGATIVE); SPECIFIC GRAVITY URINE 1.006 (1.005-1.030)
[2024-06-10 06:44] LABS: *AMPHETAMINES SCREEN URINE NEGATIVE (NEGATIVE); *BARBITURATES SCREEN URINE NEGATIVE (NEGATIVE); *BENZODIAZEPINES SCREEN URINE NEGATIVE (NEGATIVE); *COCAINE SCREEN URINE NEGATIVE (NEGATIVE)
[2024-06-10 06:45] LABS: CANNABINOID URINE SCREEN PRESUMPTIVE POSITIVE (NEGATIVE); ECSTASY MDMA SCREEN URINE NEGATIVE (NEGATIVE); METHADONE URINE SCREEN NEGATIVE (NEGATIVE); OPIATES URINE SCREEN NEGATIVE (NEGATIVE); PHENCYCLIDINE URINE SCREEN NEGATIVE (NEGATIVE)
[2024-06-10 07:07] LABS: BACTERIA URINE FEW; SQUAMOUS EPITHELIAL CELL URINE 1+ /lpf (RARE/1+); WBC URINE 0-2 /hpf (0-2); YEAST URINE NONE SEEN
[2024-06-10] MEDS ORDERED: TRAZODONE HCL 50MG TABLET PO SCH (21:00)
== END 2024-06-10 10:24 | disposition home or self-care (01) ==
LOC: ER 23:04
DX: T40.711A Poisoning by cannabis, accidental (unintentional), initial encounter (principal); R45.851 Suicidal ideations; E87.6 Hypokalemia; F31.9 Bipolar disorder, unspecified; I10 Essential (primary) hypertension; Z91.148 Patient's other noncompliance with medication regimen for other reason; M19.90 Unspecified osteoarthritis, unspecified site; Z79.899 Other long term (current) drug therapy; Z88.0 Allergy status to penicillin; Z88.2 Allergy status to sulfonamides; F12.90 Cannabis use, unspecified, uncomplicated; Z20.822 Contact with and (suspected) exposure to COVID-19; Y92.89 Other specified places as the place of occurrence of the external cause
CPT/HCPCS: 36415; 80048; 80076; 80305; 80307; 80320; 80329; 81003; 85025; 87426; 99284; G0480